=== PATIENT | female | born 1935 | race Caucasian/White ===

== ENCOUNTER 2017-02-06 12:49 | Inpatient (IN) | payer OTHER, BC ==
[~2017-02-06] VITALS: Ht 162.6 cm; Wt 77.6 kg
[~2017-02-06 12:49] MED LIST: ACET325T53 PO; ALBU8.5H8 INH; CALMO120 TP; CAT.1 PO; DONE10TA44 PO; FLUT15.88 NS; FLUT1DIS5 INH; GABA-529 PO; IPRA3AMP9 INH; LEVE1000 PO; LEVE750T4 PO; LIDOINT; LISI-209 PO; MONT10TA22; MONT10TA22 PO; MULT PO; OMEP20CA10 PO; PRAV40TA PO; SENN-153 PO; SIMV20TA2 PO; TAMS-11 PO; WARF2.5T2 PO; WARF4TAB2 PO
[2017-02-06 12:50] VITALS: BP_SYST 165
[2017-02-06 13:33] LABS: BASOPHILS % (AUTO) 0.3 % (0.0-2.0); EOSINOPHILS # (AUTO) 0.1 K/uL (0.0-0.4); EOSINOPHILS % (AUTO) 1.8 % (0.0-4.0); HEMATOCRIT 38.5 % (36-48); HEMOGLOBIN 12.4 g/dL (12.0-16.0); LYMPHOCYTES # (AUTO) 1.8 K/uL (1.0-5.5); LYMPHOCYTES % (AUTO) 21.7 % (20.5-51.5); MEAN CORPUSCULAR HEMOGLOBIN 29 pg (27-31); MEAN CORPUSCULAR HGB CONC 32 % (32-36); MEAN CORPUSCULAR VOLUME 89 fL (79.0-98.0); MONOCYTES # (AUTO) 0.5 K/uL (0.0-1.0); MONOCYTES % (AUTO) 6.3 % (1.7-9.3); NEUTROPHILS # (AUTO) 5.9 K/uL (1.8-7.7); NEUTROPHILS % (AUTO) 69.9 % (40.0-70.0); PLATELET COUNT (AUTO) 338 K/uL (130-430); RED BLOOD CELL COUNT(AUTO) 4.31 MIL/uL (4.2-6.2); RED CELL DISTRIBUTION WIDTH 14.8 % (9.0-15.0); WHITE BLOOD COUNT (AUTO) 8.3 K/uL (4.8-10.8)
[2017-02-06] MEDS ORDERED: FURO-149 PO (13:34)
[2017-02-06] MEDS ORDERED: HYDR-1189 PO (13:34)
[2017-02-06] MEDS ORDERED: POTA-118 PO (13:34)
[2017-02-06] MEDS ORDERED: NITSL SL (13:34)
[2017-02-06] MEDS ORDERED: MAGN400T10 PO (13:34)
[2017-02-06] MEDS ORDERED: LISI-600 PO (13:34)
[2017-02-06] MEDS ORDERED: DULR10 RC (13:34)
[2017-02-06] MEDS ORDERED: BEN50 PO (13:34)
[2017-02-06 13:38] LABS: ANION GAP 4 (5-15); CALCIUM 8.8 mg/dL (8.4-11.0); CHLORIDE 104 mmol/L (98-107); CREATININE 1.19 mg/dL (0.55-1.30); GLUCOSE 154 mg/dL (70-99); POTASSIUM 3.9 mmol/L (3.5-5.1); SODIUM SERUM 142 mmol/L (136-145); UREA NITROGEN, BLOOD 22 mg/dL (8-21)
[2017-02-06 13:43] LABS: ALANINE AMINOTRANSFERASE 18 U/L (12-78); ALBUMIN 3.2 g/dL (3.4-4.8); ASPARTATE AMINOTRANSFERASE 19 U/L (10-37); TOTAL BILIRUBIN 0.3 mg/dL (0.0-1.0); TOTAL PROTEIN, SERUM 7.7 g/dL (6.4-8.3)
[2017-02-06 13:57] LABS: PROTHROMBIN TIME 10.5 SECS (9.5-12.5)
[2017-02-06] MEDS ORDERED: PIPERACILLIN/TAZO 3.375 GM in NS 50 ML IV ONE (14:15)
[2017-02-06] MEDS ORDERED: PIPERACILLIN/TAZOBACTAM 3.375 GM/VIAL (ZOSYN) IV ONE (14:23)
[2017-02-06 14:35] LABS: BILIRUBIN,URINE NEGATIVE (NEGATIVE); BLOOD, URINE 2+ (NEGATIVE); CLARITY/URINE CLOUDY (CLEAR); COLOR,URINE YELLOW (YELLOW); GLUCOSE,URINE NEGATIVE (NEGATIVE); KETONES,URINE NEGATIVE (NEGATIVE); LEUKOCYTE ESTERASE ,URINE 3+ (NEGATIVE); NITRITE, URINE NEGATIVE (NEGATIVE); PROTEIN URINE 1+ (NEGATIVE); UROBILINOGEN,URINE 0.2 (0.2-1.0)
[2017-02-06 14:36] LABS: BACTERIA,URINE FEW /HPF (None Seen); MUCUS,URINE 1+ /LPF (None Seen); WBC,URINE >100 /HPF (0-3)
[2017-02-06] MEDS ORDERED: cloNIDine HCL 0.1 MG TABLET PO PRN (15:15)
[2017-02-06] MEDS ORDERED: ACETAMINOPHEN 325 MG TABLET PO PRN (15:15)
[2017-02-06] MEDS ORDERED: NITROGLYCERIN 0.4 MG TAB.SUBL SL PRN (15:15)
[2017-02-06] MEDS ORDERED: DIPHENHYDRAMINE HCL 50 MG CAPSULE PO PRN (15:15)
[2017-02-06] MEDS ORDERED: ALBUTEROL MDI INHALATION 8 GM INH INH PRN (15:15)
[2017-02-06] MEDS ORDERED: BISACODYL 10 MG/SUPPOSITORY RC PRN (15:15)
[2017-02-06] MEDS ORDERED: ALBUTEROL SULFATE 0.083% 2.5 MG/3 ML VIAL.NEB INH PRN (15:30)
[2017-02-06 15:54] VITALS: BP_SYST 141
[2017-02-06 16:36] VITALS: BP_SYST 141
[2017-02-06] MEDS: HYDROcodone/ACETAMIN 5-325 MG TAB (NORCO/ VICODIN) PO PRN ×2 (16:39→22:56)
[2017-02-06] MEDS: SIMVASTATIN 20 MG TABLET PO SCH (17:46)
[2017-02-06 20:23] VITALS: BP_SYST 136
[2017-02-06] MEDS: GABAPENTIN 100 MG CAPSULE PO SCH (22:53)
[2017-02-06] MEDS: TAMSULOSIN HCL 0.4 MG CAP PO SCH (22:54)
[2017-02-06] MEDS: levETIRAcetam 500 MG TABLET PO SCH (22:54)
[2017-02-06] MEDS: DONEPEZIL HCL 5 MG TABLET (ARICEPT) PO SCH (22:54)
[2017-02-06] MEDS: MAGNESIUM OXIDE 400 MG TABLET PO SCH (22:54)
[2017-02-07 00:48] VITALS: BP_SYST 139
[2017-02-07 05:46] VITALS: BP_SYST 130
[2017-02-07 06:29] LABS: BASOPHILS % (AUTO) 0.5 % (0.0-2.0); EOSINOPHILS # (AUTO) 0.2 K/uL (0.0-0.4); EOSINOPHILS % (AUTO) 3.5 % (0.0-4.0); HEMATOCRIT 34.8 % (36-48); HEMOGLOBIN 11.3 g/dL (12.0-16.0); LYMPHOCYTES % (AUTO) 28.9 % (20.5-51.5); MEAN CORPUSCULAR HEMOGLOBIN 29 pg (27-31); MEAN CORPUSCULAR HGB CONC 33 % (32-36); MEAN CORPUSCULAR VOLUME 90 fL (79.0-98.0); MONOCYTES # (AUTO) 0.6 K/uL (0.0-1.0); MONOCYTES % (AUTO) 8.5 % (1.7-9.3); NEUTROPHILS % (AUTO) 58.6 % (40.0-70.0); PLATELET COUNT (AUTO) 270 K/uL (130-430); RED BLOOD CELL COUNT(AUTO) 3.88 MIL/uL (4.2-6.2); RED CELL DISTRIBUTION WIDTH 14.7 % (9.0-15.0); WHITE BLOOD COUNT (AUTO) 6.8 K/uL (4.8-10.8)
[2017-02-07 06:36] LABS: ANION GAP 5 (5-15); CALCIUM 8.5 mg/dL (8.4-11.0); CHLORIDE 102 mmol/L (98-107); CREATININE 1.36 mg/dL (0.55-1.30); GLUCOSE 120 mg/dL (70-99); POTASSIUM 3.5 mmol/L (3.5-5.1); SODIUM SERUM 138 mmol/L (136-145); UREA NITROGEN, BLOOD 23 mg/dL (8-21)
[2017-02-07 08:43] VITALS: BP_SYST 119
[2017-02-07] MEDS: levETIRAcetam 500 MG TABLET PO SCH ×2 (08:52→20:49)
[2017-02-07] MEDS: POTASSIUM CHLORIDE 10 MEQ TAB.PRT.SR PO SCH (08:52)
[2017-02-07] MEDS: MAGNESIUM OXIDE 400 MG TABLET PO SCH ×2 (08:53→20:50)
[2017-02-07] MEDS: MONTELUKAST 10 MG TABLET PO SCH (08:53)
[2017-02-07] MEDS: SENNOSIDES 8.6 MG TABLET PO SCH (08:53)
[2017-02-07] MEDS: FUROSEMIDE 40 MG TABLET PO SCH (08:53)
[2017-02-07] MEDS: LISINOPRIL 20 MG TABLET PO SCH (08:53)
[2017-02-07] MEDS: GABAPENTIN 100 MG CAPSULE PO SCH ×2 (08:53→20:49)
[2017-02-07] MEDS ORDERED: PRAVASTATIN SODIUM 20 MG TABLET (PRAVACHOL) PO SCH (09:00)
[2017-02-07] MEDS: HYDROcodone/ACETAMIN 5-325 MG TAB (NORCO/ VICODIN) PO PRN (09:00)
[2017-02-07] MEDS ORDERED: METOPROLOL SUCCINATE 25 MG TAB.SR.24H (TOPROL XL) PO ONE (09:45)
[2017-02-07 12:00] VITALS: BP_SYST 108
[2017-02-07 16:00] VITALS: BP_SYST 114
[2017-02-07] MEDS: WARFARIN SODIUM 5 MG TABLET PO SCH (18:12)
[2017-02-07] MEDS: SIMVASTATIN 20 MG TABLET PO SCH (18:13)
[2017-02-07 20:00] VITALS: BP_SYST 121
[2017-02-07] MEDS: TAMSULOSIN HCL 0.4 MG CAP PO SCH (20:49)
[2017-02-07] MEDS: DONEPEZIL HCL 5 MG TABLET (ARICEPT) PO SCH (20:50)
[2017-02-08 00:24] VITALS: BP_SYST 129
[2017-02-08 05:38] VITALS: BP_SYST 121
[2017-02-08 06:34] LABS: BASOPHILS % (AUTO) 0.4 % (0.0-2.0); EOSINOPHILS # (AUTO) 0.2 K/uL (0.0-0.4); EOSINOPHILS % (AUTO) 2.6 % (0.0-4.0); HEMATOCRIT 34.8 % (36-48); HEMOGLOBIN 11.7 g/dL (12.0-16.0); LYMPHOCYTES # (AUTO) 1.8 K/uL (1.0-5.5); LYMPHOCYTES % (AUTO) 21.4 % (20.5-51.5); MEAN CORPUSCULAR HEMOGLOBIN 30 pg (27-31); MEAN CORPUSCULAR HGB CONC 34 % (32-36); MEAN CORPUSCULAR VOLUME 89 fL (79.0-98.0); MONOCYTES # (AUTO) 0.5 K/uL (0.0-1.0); MONOCYTES % (AUTO) 6.4 % (1.7-9.3); NEUTROPHILS # (AUTO) 5.9 K/uL (1.8-7.7); NEUTROPHILS % (AUTO) 69.2 % (40.0-70.0); PLATELET COUNT (AUTO) 273 K/uL (130-430); RED BLOOD CELL COUNT(AUTO) 3.91 MIL/uL (4.2-6.2); RED CELL DISTRIBUTION WIDTH 14.3 % (9.0-15.0); WHITE BLOOD COUNT (AUTO) 8.4 K/uL (4.8-10.8)
[2017-02-08 07:18] LABS: ANION GAP 6 (5-15); CHLORIDE 103 mmol/L (98-107); CREATININE 1.31 mg/dL (0.55-1.30); GLUCOSE 122 mg/dL (70-99); POTASSIUM 4.1 mmol/L (3.5-5.1); SODIUM SERUM 142 mmol/L (136-145); THYROID STIMULATING HORMONE 1.26 uIu/mL (0.34-4.82); UREA NITROGEN, BLOOD 32 mg/dL (8-21)
[2017-02-08 07:54] VITALS: BP_SYST 139
[2017-02-08] MEDS: LISINOPRIL 20 MG TABLET PO SCH (09:00)
[2017-02-08] MEDS ORDERED: REGADENOSON 0.4 MG/5 ML SYRINGE IVP ONE (10:00)
[2017-02-08] MEDS: GABAPENTIN 100 MG CAPSULE PO SCH ×2 (11:36→20:26)
[2017-02-08] MEDS: levETIRAcetam 500 MG TABLET PO SCH ×2 (11:36→20:26)
[2017-02-08] MEDS: FUROSEMIDE 40 MG TABLET PO SCH (11:37)
[2017-02-08] MEDS: METOPROLOL SUCCINATE 25 MG TAB.SR.24H (TOPROL XL) PO SCH (11:37)
[2017-02-08] MEDS: MONTELUKAST 10 MG TABLET PO SCH (11:38)
[2017-02-08] MEDS: POTASSIUM CHLORIDE 10 MEQ TAB.PRT.SR PO SCH (11:38)
[2017-02-08] MEDS: MAGNESIUM OXIDE 400 MG TABLET PO SCH ×2 (11:38→20:26)
[2017-02-08] MEDS: SENNOSIDES 8.6 MG TABLET PO SCH (11:38)
[2017-02-08 12:00] VITALS: BP_SYST 119
[2017-02-08 16:00] VITALS: BP_SYST 113
[2017-02-08] MEDS ORDERED: LEVOFLOXACIN 500 MG/D5W 100 ML IV SCH (17:00)
[2017-02-08] MEDS: SIMVASTATIN 20 MG TABLET PO SCH (17:33)
[2017-02-08] MEDS: WARFARIN SODIUM 5 MG TABLET PO SCH (17:41)
[2017-02-08 19:57] VITALS: BP_SYST 128
[2017-02-08] MEDS: TAMSULOSIN HCL 0.4 MG CAP PO SCH (20:26)
[2017-02-08] MEDS: DONEPEZIL HCL 5 MG TABLET (ARICEPT) PO SCH (20:26)
[2017-02-09 01:24] VITALS: BP_SYST 133
[2017-02-09 04:18] VITALS: BP_SYST 108
[2017-02-09 07:17] LABS: PROTHROMBIN TIME 11.1 SECS (9.5-12.5)
[2017-02-09] MEDS: METOPROLOL SUCCINATE 25 MG TAB.SR.24H (TOPROL XL) PO SCH (09:00)
[2017-02-09] MEDS: SENNOSIDES 8.6 MG TABLET PO SCH (09:33)
[2017-02-09] MEDS: FUROSEMIDE 40 MG TABLET PO SCH (09:34)
[2017-02-09] MEDS: MONTELUKAST 10 MG TABLET PO SCH (09:34)
[2017-02-09] MEDS: POTASSIUM CHLORIDE 10 MEQ TAB.PRT.SR PO SCH (09:34)
[2017-02-09] MEDS: MAGNESIUM OXIDE 400 MG TABLET PO SCH ×2 (09:35→21:46)
[2017-02-09] MEDS: LISINOPRIL 20 MG TABLET PO SCH (09:35)
[2017-02-09] MEDS: GABAPENTIN 100 MG CAPSULE PO SCH ×2 (09:35→21:47)
[2017-02-09] MEDS: levETIRAcetam 500 MG TABLET PO SCH ×2 (09:35→21:45)
[2017-02-09] MEDS: LEVOFLOXACIN 250 MG/D5W 50 ML IV SCH (09:36)
[2017-02-09 12:00] VITALS: BP_SYST 128
[2017-02-09 16:00] VITALS: BP_SYST 126
[2017-02-09] MEDS ORDERED: WARFARIN SODIUM 7.5 MG TABLET PO SCH (18:00)
[2017-02-09] MEDS: SIMVASTATIN 20 MG TABLET PO SCH (18:10)
[2017-02-09 20:14] VITALS: BP_SYST 99
[2017-02-09] MEDS: TAMSULOSIN HCL 0.4 MG CAP PO SCH (21:46)
[2017-02-09] MEDS: DONEPEZIL HCL 5 MG TABLET (ARICEPT) PO SCH (21:46)
[2017-02-10 04:03] VITALS: BP_SYST 113
[2017-02-10 06:54] LABS: INR 1.2 (0.8-1.2); PROTHROMBIN TIME 13.2 SECS (9.5-12.5)
[2017-02-10 08:00] VITALS: BP_SYST 150
[2017-02-10] MEDS: METOPROLOL SUCCINATE 25 MG TAB.SR.24H (TOPROL XL) PO SCH (09:00)
[2017-02-10] MEDS: LISINOPRIL 20 MG TABLET PO SCH (09:04)
[2017-02-10] MEDS: LEVOFLOXACIN 250 MG/D5W 50 ML IV SCH (09:04)
[2017-02-10] MEDS: levETIRAcetam 500 MG TABLET PO SCH ×2 (09:04→21:30)
[2017-02-10] MEDS: GABAPENTIN 100 MG CAPSULE PO SCH ×2 (09:04→21:29)
[2017-02-10] MEDS: POTASSIUM CHLORIDE 10 MEQ TAB.PRT.SR PO SCH (09:05)
[2017-02-10] MEDS: MAGNESIUM OXIDE 400 MG TABLET PO SCH ×2 (09:05→21:30)
[2017-02-10] MEDS: FUROSEMIDE 40 MG TABLET PO SCH (09:06)
[2017-02-10] MEDS: MONTELUKAST 10 MG TABLET PO SCH (09:06)
[2017-02-10] MEDS: SENNOSIDES 8.6 MG TABLET PO SCH (09:06)
[2017-02-10] MEDS: HYDROcodone/ACETAMIN 5-325 MG TAB (NORCO/ VICODIN) PO PRN ×2 (09:26→16:21)
[2017-02-10 12:00] VITALS: BP_SYST 99
[2017-02-10 16:10] VITALS: BP_SYST 100
[2017-02-10] MEDS: SIMVASTATIN 20 MG TABLET PO SCH (17:36)
[2017-02-10 17:56] VITALS: BP_SYST 100
[2017-02-10 21:00] VITALS: BP_SYST 133
[2017-02-10] MEDS: TAMSULOSIN HCL 0.4 MG CAP PO SCH (21:30)
[2017-02-10] MEDS: DONEPEZIL HCL 5 MG TABLET (ARICEPT) PO SCH (21:30)
[2017-02-11] VITALS: BP_SYST 133
[2017-02-11 04:21] VITALS: BP_SYST 102
[2017-02-11 06:30] LABS: ANION GAP 4 (5-15); CALCIUM 8.6 mg/dL (8.4-11.0); CHLORIDE 100 mmol/L (98-107); CREATININE 1.27 mg/dL (0.55-1.30); GLUCOSE 102 mg/dL (70-99); POTASSIUM 4.1 mmol/L (3.5-5.1); SODIUM SERUM 135 mmol/L (136-145); UREA NITROGEN, BLOOD 34 mg/dL (8-21)
[2017-02-11 06:38] LABS: BASOPHILS % (AUTO) 0.4 % (0.0-2.0); EOSINOPHILS # (AUTO) 0.3 K/uL (0.0-0.4); EOSINOPHILS % (AUTO) 3.3 % (0.0-4.0); HEMATOCRIT 37.7 % (36-48); HEMOGLOBIN 12.3 g/dL (12.0-16.0); LYMPHOCYTES # (AUTO) 1.9 K/uL (1.0-5.5); LYMPHOCYTES % (AUTO) 23.9 % (20.5-51.5); MEAN CORPUSCULAR HEMOGLOBIN 29 pg (27-31); MEAN CORPUSCULAR HGB CONC 33 % (32-36); MEAN CORPUSCULAR VOLUME 90 fL (79.0-98.0); MONOCYTES # (AUTO) 0.7 K/uL (0.0-1.0); MONOCYTES % (AUTO) 8.7 % (1.7-9.3); NEUTROPHILS # (AUTO) 5.1 K/uL (1.8-7.7); NEUTROPHILS % (AUTO) 63.7 % (40.0-70.0); PLATELET COUNT (AUTO) 285 K/uL (130-430); RED BLOOD CELL COUNT(AUTO) 4.19 MIL/uL (4.2-6.2); RED CELL DISTRIBUTION WIDTH 14.2 % (9.0-15.0)
[2017-02-11 08:00] VITALS: BP_SYST 127
[2017-02-11] MEDS: METOPROLOL SUCCINATE 25 MG TAB.SR.24H (TOPROL XL) PO SCH (09:00)
[2017-02-11] MEDS: LEVOFLOXACIN 250 MG/D5W 50 ML IV SCH (09:00)
[2017-02-11] MEDS: SENNOSIDES 8.6 MG TABLET PO SCH (09:40)
[2017-02-11] MEDS: levETIRAcetam 500 MG TABLET PO SCH (09:40)
[2017-02-11] MEDS: FUROSEMIDE 40 MG TABLET PO SCH (09:40)
[2017-02-11] MEDS: LISINOPRIL 20 MG TABLET PO SCH (09:40)
[2017-02-11] MEDS: MONTELUKAST 10 MG TABLET PO SCH (09:40)
[2017-02-11] MEDS: POTASSIUM CHLORIDE 10 MEQ TAB.PRT.SR PO SCH (09:41)
[2017-02-11] MEDS: GABAPENTIN 100 MG CAPSULE PO SCH (09:41)
[2017-02-11] MEDS: MAGNESIUM OXIDE 400 MG TABLET PO SCH (09:41)
[2017-02-11 10:52] LABS: INR 1.6 (0.8-1.2); PROTHROMBIN TIME 17.8 SECS (9.5-12.5)
[2017-02-11 11:57] VITALS: BP_SYST 128
[2017-02-11 12:00] VITALS: BP_SYST 124
[2017-02-11 18:06] VITALS: BP_SYST 122
== END 2017-02-11 18:00 | DRG 206 ==
LOC: SED 12:49 → STU 14:20
PROVIDERS: ADMIT Family Medicine; ATTEND Family Medicine
DX: M94.0 Chondrocostal junction syndrome [Tietze] (principal); N39.0 Urinary tract infection, site not specified; I25.10 Atherosclerotic heart disease of native coronary artery without angina pectoris; I10 Essential (primary) hypertension; E78.5 Hyperlipidemia, unspecified; F17.200 Nicotine dependence, unspecified, uncomplicated; Z66 Do not resuscitate; F32.9 Major depressive disorder, single episode, unspecified; G40.909 Epilepsy, unspecified, not intractable, without status epilepticus; G62.9 Polyneuropathy, unspecified; J44.9 Chronic obstructive pulmonary disease, unspecified; N63 Unspecified lump in breast; B95.2 Enterococcus as the cause of diseases classified elsewhere; R13.10 Dysphagia, unspecified; Z91.041 Radiographic dye allergy status; Z86.73 Personal history of transient ischemic attack (TIA), and cerebral infarction without residual deficits; I25.2 Old myocardial infarction; Z79.899 Other long term (current) drug therapy; Z95.5 Presence of coronary angioplasty implant and graft; Z90.710 Acquired absence of both cervix and uterus
CPT/HCPCS: 36415; 71010; 74000-TC; 76641; 80048; 80053; 81000-TC; 82542; 83880; 84443-TC; 84484; 85025; 85610-TC; 85730-TC; 86300; 87081; 87086; 87186-TC; 93005; 93017; 93306; 94760; 96365; 99285; A9500; G0204; J1956; J2543; J2785; J7050